=== PATIENT | male | born 1965 | race Hispanic/Latino ===

== ENCOUNTER 2018-03-10 10:37 | Outpatient (CLI) | payer OTHER ==
--- NOTE | 2018-03-13 13:10 | RAD ---
MODIFIED BARIUM SWALLOW PERFOMRED WITH SPEECH THERAPIST: HISTORY: Oral phase dysphagia, gastrointestinal reflux. FINDINGS: The patient was given a variety of materials including puree, nectar thick liquid via cup, thin liqui d via cup and straw, mechanical soft texture food, and regular texture food. This shows some mild or al residue. Premature spillage to the vallecular and piriform sinus basically with all consistencies . There is silent penetration with thin liquids. POS: COURT
== END 2018-03-10 10:38 | disposition home or self-care (01) ==
PROVIDERS: ATTEND Otolaryngology Plastic Surgery within the Head & Neck
DX: K21.9 Gastro-esophageal reflux disease without esophagitis (principal); R13.11 Dysphagia, oral phase
CPT/HCPCS: 74230; G8996-GN-CI; G8997-GN-CI; G8998-GN-CI